=== PATIENT | female | born 2000 | race Caucasian/White ===

== ENCOUNTER 2022-07-01 09:39 | Emergency (ER) | payer OTHER, SELFPAY ==
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
[2022-07-01 09:47] VITALS: BP 138/72; PULSE 93; RESP 16; TEMP 37.7; O2SAT 99
== END 2022-07-01 10:06 | disposition home or self-care (01) ==
PROVIDERS: Emergency Provider Nurse Practitioner Family
DX: B08.5 Enteroviral vesicular pharyngitis (principal)
CPT/HCPCS: 87255; 99213; G0463

== ENCOUNTER 2022-07-05 00:26 | Emergency (ER) | payer OTHER, SELFPAY ==
[2022-07-05 00:47] VITALS: BP 134/103; PULSE 87; RESP 20; TEMP 36.6; O2SAT 100
[2022-07-05 03:08] VITALS: BP 131/96; PULSE 92; RESP 16; O2SAT 99
[2022-07-05 03:23] LABS: Appearance Urine Clear (Clear); Basophils Absolute Auto 0.1 K/mm3 (0.0-0.1); Basophils Percent Auto 0.4 % (0.2-1.2); Bilirubin Urine 2+ (Negative); Blood Urine Trace-lysed (Negative); Color Urine Yellow (Yellow); Eosinophils Absolute Auto 0.1 K/mm3 (0-0.3); Eosinophils Percent Auto 0.5 % (0-4.4); Glucose Urine UA Negative (Negative); Hematocrit 41.6 % (37.0-47.0); Hemoglobin 14.4 g/dL (12.0-15.0); Immature Granulocyte Absolute 0.03 K/mm3 (0.00-0.031); Immature Granulocyte Percent A 0.2 % (0-0.5); Ketones Urine 3+ mg/dL (Negative); Leukocyte Esterase Ur Negative LEU/UL (Negative); Lymphocytes Absolute Auto 3.37 K/mm3 (0.9-3.2); Mean Corpuscular HGB Conc 34.6 g/dl (32-36); Mean Corpuscular Hemoglobin 30.4 pg (26-34); Mean Corpuscular Volume 87.8 fl (80-100); Mean Platelet Volume 10.1 fl (7.4-10.4); Monocytes Absolute Auto 0.8 K/mm3 (0.1-0.6); Monocytes Percent Auto 5.9 % (2.6-8.5); Neutrophils Absolute Auto 8.7 K/mm3 (1.3-6.7); Nitrate Urine Negative (Negative); Platelet Count Result 437 k/mm3 (150-375); Protein Urine 1+ mg/dL (Negative); Red Blood Count 4.74 M/mm3 (4.2-5.4); Red Cell Distribution Width 11.9 % (11.5-14.5); Specific Grav Ur >= 1.030 (1.001-1.035); Urobilinogen Urine 0.2 mg/dL (<2.0); pH Urine 5.5 (5.0-9.0)
[2022-07-05 03:25] LABS: Bacteria Urine Trace /hpf; Mucus Urine Heavy /lpf; Squamous Epithelial Cell Urine Few /hpf (Few); WBC Urine 16-20 /hpf
[2022-07-05 03:28] LABS: Add Urine Microscopic? YES
[2022-07-05 03:33] LABS: Alanine Aminotransferase 29 U/L (6-35); Albumin Level 5.1 g/dL (3.5-5.1); Alkaline Phosphatase 38 U/L (38-126); Anion Gap 18 mmol/L (8-16); Aspartate Amino Transferase 46 U/L (14-36); Bilirubin,Total 1.4 mg/dL (0.2-1.3); Blood Urea Nitrogen 17 mg/dL (7-17); Calcium 9.5 mg/dL (8.4-10.2); Carbon Dioxide 21 mmol/L (22-30); Chloride 99 mmol/L (98-107); Estimated CRCL calculation 83 ml/min; Estimated Glomerular Filt Rate > 60; Glucose 99 mg/dL (65-110); Lipase 61 U/L (23-300); Potassium 3.9 mmol/L (3.4-5.0); Sodium 138 mmol/L (137-145)
--- NOTE | 2022-07-05 03:33 | ED.GENADULT ---
HPI - General Adult General Chief complaint: Nausea/Vomiting/Diarrhea Stated complaint: Vomiting, nausea Time Seen by Provider: 07/05/22 03:04 Source: RN notes reviewed History of Present Illness HPI narrative: Patient presents emergency department from home for nausea. Patient states that on Wednesday of this past week she gone to urgent care she had had numerous sores in her mouth at that time she had been diagnosed with herpes and started on acyclovir as well as oral lidocaine she states that since she has been taking the acyclovir she has been nauseous causing her to have episodes of emesis she states that nausea is worse when she takes a medication states the lidocaine has been helping with her mouth she also states that it is been hard for her to eat or drink as her mouth has been sore she denies having any abdominal pain she denies any diarrhea she states she has had some subjective fevers Related Data Home Medications Medication Instructions Recorded Confirmed norgestimate 0.25 mg-ethinyl 1 tablet PO DAILY 08/04/19 07/01/22 estradiol 35 mcg tablet (Sprintec (28)) Allergies Allergy/AdvReac Type Severity Reaction Status Date / Time No Known Allergies Allergy Unknown Verified 07/05/22 00:51 Review of Systems Review of Systems: Gen.: Reports subjective fevers denies chills Eyes: Denies eye pain or visual change ENT: reports sores in her mouth Respiratory: Denies shortness of breath or cough CV: Denies chest pain or palpitations GI: Denies abdominal pain emesis or diarrhea. Reports nausea Musculoskeletal: Denies back pain or muscle pain Neuro: Denies numbness, tingling, weakness or focal weakness Skin: Denies rash Except as documented, all other systems reviewed and negative [facility] Past Medical History Medical History (Updated 07/05/22 @ 05:35 by Monty Dasilva DO) Patient denies significant medical history Social History Social History Smoking status: Never smoker Alcohol intake: never Exam Narrative: APPEARANCE: No acute distress, nontoxic, resting in bed EYES: EOMI HEENT: Normocephalic, atraumatic, oral mucosa dry no erythema or exudate posterior pharynx numerous small vesicular lesions over the lower and upper lips RESPIRATORY: No respiratory distress Clear to auscultation bilaterally with no rhonchi wheezing or rales. CARDIOVASCULAR: Regular rate and rhythm without murmurs rubs or gallops. ABDOMINAL: Soft, nontender, nondistended, no rebound or guarding MUSCULOSKELETAl: Moves all extremities. No clubbing, cyanosis or edema. NEURO: Awake and alert. Following commands, speech normal, no focal deficits SKIN:: Warm, dry. No rashes lesions or abrasions PSYCHIATRIC: Normal affect/mood, Course Course Emergency Course: Reviewed medication side effects acyclovir can cause nausea and vomiting Patient states she is feeling much better following medication repeat abdominal exam is soft and nontender Discussed with patient results of workup and diagnosis. Discussed need for follow-up with primary care, proper use of medication, and reasons to return to the emergency department. Patient understands and agrees to current treatment plan Vital Signs Vital signs: Vital Signs Temperature 97.8 F 07/05/22 00:47 Pulse Rate 87 07/05/22 00:47 Respiratory Rate 20 07/05/22 00:47 Blood Pressure 134/103 H 07/05/22 00:47 Pulse Oximetry 100 07/05/22 00:47 Oxygen Delivery Room Air 07/05/22 00:47 Temperature 97.8 F 07/05/22 00:47 Pulse Rate 98 07/05/22 05:32 Respiratory Rate 16 07/05/22 05:32 Blood Pressure 120/69 07/05/22 05:32 Pulse Oximetry 100 07/05/22 05:32 Oxygen Delivery Room Air 07/05/22 00:47 Medical Decision Making Vital Signs Vital Signs: Vital Signs Temperature 97.8 F 07/05/22 00:47 Pulse Rate 87 07/05/22 00:47 Respiratory Rate 20 07/05/22 00:47 Blood Pressure 134/103 H 07/05/22
[2022-07-05] MEDS: FAMOTIDINE 20 MG/2 ML VIAL IV PUSH (03:36)
[2022-07-05] MEDS: SODIUM CHLORIDE 0.9% IV 1,000 ML 999 ML IV CONT ×2 (03:36→05:06)
[2022-07-05] MEDS: ONDANSETRON INJ 4 MG/2 ML VIAL IV PUSH (03:36)
[2022-07-05 03:37] LABS: Platelet Estimate Adequate (Adequate)
[2022-07-05 03:38] LABS: Atypical Lymphocytes Present
[2022-07-05 05:32] VITALS: BP 120/69; PULSE 98; RESP 16; O2SAT 100
== END 2022-07-05 06:13 | disposition home or self-care (01) ==
PROVIDERS: Emergency Provider Emergency Medicine
DX: R11.0 Nausea (principal); E86.0 Dehydration; B00.9 Herpesviral infection, unspecified
CPT/HCPCS: 36415; 80053; 81001; 81025; 83690; 85025; 87086; 96361; 96374; 96375; 99284; J2405; J7030

== ENCOUNTER 2022-08-10 09:03 | Emergency (ER) | payer OTHER, SELFPAY ==
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
--- NOTE | ~2022-08-10 | XR_ITS ---
EXAMINATION: XR lumbar spine min 4V DATE: 08/10/2022 12:29 INDICATION: Low back pain TECHNIQUE: Anteroposterior, lateral, and bilateral oblique views of the lumbar spine, and cone-down l ateral view of the lumbosacral junction were obtained. COMPARISON: None. FINDINGS: There is no fracture, dislocation, or subluxation. The vertebral body heights, alignment, a nd intervertebral disc spaces are normal. The paravertebral soft tissues are unremarkable. IMPRESSION: 1. No acute osseous abnormality. Reviewed, dictated and finalized at location B. ATE JUDGE
[2022-08-10 09:15] VITALS: BP 121/66; PULSE 76; RESP 18; TEMP 36.9; O2SAT 100
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
== END 2022-08-10 13:27 | disposition home or self-care (01) ==
PROVIDERS: Emergency Provider Emergency Medicine
DX: S00.33XA Contusion of nose, initial encounter (principal); S80.02XA Contusion of left knee, initial encounter; S39.012A Strain of muscle, fascia and tendon of lower back, initial encounter; V49.40XA Driver injured in collision with unspecified motor vehicles in traffic accident, initial encounter
CPT/HCPCS: 70450; 70486; 72110; 72125; 73564; 99284